=== PATIENT | female | born 1965 | race African-American/Black ===

== ENCOUNTER 2018-05-20 18:15 | Inpatient (IN) | payer MEDICARE, MEDICAID ==
[~2018-05-20] VITALS: Ht 170.2 cm; Wt 109.8 kg
[~2018-05-20 18:15] MED LIST: ADVAIR 100-501 EACH INH; ALBUTEROL SULF8.5 GM INH; ANUSOL-HC25 MG RECTAL; AZITHROMYCIN250 MG ORAL; BENAZEPRIL HCL10 MG PO; BENAZEPRIL HCL20 MG PO; CLARITIN5 MG PO; COLACE100 MG ORAL; CYCLOBENZAPRINE10 MG ORAL; HYDROCHLOROTHIA25 MG PO; NAPROXEN500 M2 ORAL; NASONEX17 GM NS; NORCO 10-325 T1 EACH PO; ONDANSETRON ODT4 MG ORAL; PREDNISONE20 M1 PO; PROMETHAZINE-C118 M1 ORAL; PROMETHAZINE-D118 ML ORAL; PROMOD946 ML PO; ROBITUSSIN DM T10 ML PO; TYLENOL EXTRA500 MG ORAL; VICODIN ES 7.51 EACH PO; ZITHROMAX250 MG ORAL
[2018-05-20] MEDS ORDERED: Sodium Chloride 500ML 500 ML IV ONE (18:39)
[2018-05-20 18:50] VITALS: BP 152/75
[2018-05-20 18:57] LABS: BASOPHILS % (AUTO) 1.5 % (0.0-2.0); EOSINOPHILS % (AUTO) 4.7 % (0.0-3.0); HEMATOCRIT 38.5 % (37.0-47.0); HEMOGLOBIN 12.6 G/DL (12.0-16.0); LYMPHOCYTES % (AUTO) 33.1 % (20.0-45.0); MEAN CORPUSCULAR VOLUME 86 FL (80-99); MONOCYTES % (AUTO) 8.8 % (1.0-10.0); NEUTROPHILS % (AUTO) 51.9 % (45.0-75.0); PLATELET COUNT 300 K/UL (150-450); RED BLOOD COUNT 4.46 M/UL (4.20-5.40); RED CELL DISTRIBUTION WIDTH 12.3 % (11.6-14.8); WHITE BLOOD COUNT 8.1 K/UL (4.8-10.8)
[2018-05-20 19:04] LABS: APPEARANCE,URINE CLEAR; BILIRUBIN, URINE NEGATIVE (NEGATIVE); COLOR,URINE PALE YELLOW; GLUCOSE, URINE (UA) NEGATIVE (NEGATIVE); KETONES,URINE NEGATIVE (NEGATIVE); LEUKOCYTE ESTERASE ,URINE 1+ (NEGATIVE); NITRITE,URINE NEGATIVE (NEGATIVE); PH,URINE 5 (4.5-8.0); PROTEIN,URINE NEGATIVE (NEGATIVE); UROBILINOGEN,URINE NORMAL MG/DL (0.0-1.0)
[2018-05-20 19:11] LABS: ANION GAP 10 mmol/L (5-15); BLOOD UREA NITROGEN 16 mg/dL (7-18); CALCIUM 9.3 MG/DL (8.5-10.1); CARBON DIOXIDE 30 MMOL/L (21-32); CHLORIDE 102 MMOL/L (98-107); CREATININE 1.1 MG/DL (0.55-1.30); POTASSIUM 3.6 MMOL/L (3.5-5.1); SODIUM 141 MMOL/L (136-145)
--- NOTE | 2018-05-20 19:24 | Emergency Room Report ---
History of Present Illness General Chief Complaint: Chest Pain Source: Patient, Medical Record (rPem Torres MD) Present Illness HPI 52-year-old female presents ED for evaluation. Complaining of chest pain. States that she felt fluttering in her chest which lasted for several minutes then subsided. Happened a few days ago. Happened earlier today. Feels pressure on her chest at this time. 4 out of 10, nonradiating. Denies shortness of breath. Denies on-call or drug use. Denies fevers or chills. No other aggravating relieving factors. Denies any other associated symptoms (Prem Torres MD) Allergies: Coded Allergies: No Known Allergies (Unverified , 01/14/16) Patient History Past Medical History: HTN, asthma, other - chronc back pain Past Surgical History: none Pertinent Family History: none Social History: Denies: smoking, alcohol use, drug use Now: No Immunizations: UTD Reviewed Nursing Documentation: PMH: Agreed; PSxH: Agreed (Prem Torres MD) Nursing Documentation-PMH Past Medical History: No History, Except For Hx Hypertension: Yes Hx Asthma: Yes Hx Neurological Problems: Yes - CHRONIC BACK PAIN (Prem Torres MD) Review of Systems All Other Systems: negative except mentioned in HPI (Prem Torres MD) Physical Exam Vital Signs Date Time Temp Pulse Resp B/P (MAP) Pulse Ox O2 Delivery O2 Flow Rate FiO2 25/18 18:25 98.4 67 16 168/71 96 Room Air Sp02 EP Interpretation: reviewed, normal General Appearance: no apparent distress, alert, GCS 15, non-toxic Head: normocephalic, atraumatic Eyes: bilateral eye normal inspection, bilateral eye PERRL ENT: hearing grossly normal, normal pharynx, no angioedema, normal voice Neck: full range of motion, supple/symm/no masses Respiratory: lungs clear, normal breath sounds, speaking full sentences, other - reproducible anterior chest wall pain Cardiovascular #1: regular rate, rhythm, no edema Cardiovascular #2: 2+ carotid (R), 2+ carotid (L), 2+ radial (R), 2+ radial (L) , 2+ dorsalis pedis (R), 2+ dorsalis pedis (L) Gastrointestinal: normal bowel sounds, non tender, soft, non-distended, no guarding, no rebound Rectal: deferred Genitourinary: normal inspection, no CVA tenderness Musculoskeletal: back normal, gait/station normal, normal range of motion, non- tender Neurologic: alert, oriented x3, responsive, motor strength/tone normal, sensory intact, speech normal Psychiatric: judgement/insight normal, memory normal, mood/affect normal, no suicidal/homicidal ideation Reflexes: 3+ bicep (R), 3+ bicep (L), 3+ tricep (R), 3+ tricep (L), 3+ knee (R) , 3+ knee (L) Skin: normal color, no rash, warm/dry, well hydrated Lymphatic: no adenopathy (Prem Torres MD) Medical Decision Making Diagnostic Impression: Primary Impression: Chest pain Qualified Codes: R07.9 - Chest pain, unspecified Additional Impressions: Palpitations Ectopic cardiac beats Chronic hip pain Qualified Codes: M25.559 - Pain in unspecified hip; G89.29 - Other chronic pain Hypertension Qualified Codes: I10 - Essential (primary) hypertension ER Course Please see above note. Patient with several episodes of palpitations with associated chest pressure. Anxiety after this began today. Prior smoker, family history (not young age), hypertension. Not on beta linnette. Discussed admission for observation. C/O hip pain. Treated with [place]. Admit telemetry Dr. Escobar. (Delvin Nelson MD) EKG Diagnostic Results Rate: normal Rhythm: NSR ST Segments: no acute changes (Prem Torres MD) Rate: normal Rhythm: NSR ST Segments: no acute changes - PACs and PVCs (Delvin Nelson MD) Rhythm Strip Diag. Results EP Interpretation: yes Rhythm: NSR, no PVC's, no ectopy (Prem Torres MD) EP Interpretation: yes Rhythm: NSR, other - PACs and PVCs, NSR (Delvin Nelson MD) Last Vital Signs Date Time Temp Pulse Resp B/P (MAP) Pulse Ox O2 Delivery O2 Flow Rate FiO2 05/20/18 18:50 98.4 76 18 152/75 100 Room Air (Prem Torres MD) Last Vital Signs Date Time Temp Pulse Resp B/P (MAP) Pulse Ox O2 Delivery O2 Flow Rate FiO2 05/21/18 12:00 97.5 69 20 160/84 (109) 97 05/21/18 10:25 Room Air Status: improved (Delvni Nelson MD) Disposition: ADMITTED INPATIENT Condition: Serious Referrals: NON PHYSICIAN (PCP) Prem Torres MD May 20, 2018 19:24 Delvin Nelson MD May 20, 2018 19:53
[2018-05-20 19:32] LABS: ALANINE AMINOTRANSFERASE 46 U/L (12-78); ALBUMIN 3.6 G/DL (3.4-5.0); ALBUMIN/GLOBULIN RATIO 0.9 (1.0-2.7); ALKALINE PHOSPHATASE 66 U/L (46-116); ASPARTATE AMINO TRANSFERASE 30 U/L (15-37); BILIRUBIN,TOTAL 0.5 MG/DL (0.2-1.0); CKMB 3.4 NG/ML (0.0-3.6); CREATINE KINASE 704 U/L (26-308)
[2018-05-20] MEDS ORDERED: Nitroglycerin 2% oint pkt TOPIC ONE (19:45)
[2018-05-20] MEDS ORDERED: LORazepam Inj 2mg/ml 1ml IV ONE (19:45)
[2018-05-20] MEDS ORDERED: Norco 5mg/325mg tab ORAL ONE (20:45)
[2018-05-20 21:27] VITALS: BP 163/81
[2018-05-20] MEDS ORDERED: Zolpidem 5mg tab ORAL PRN (21:45)
[2018-05-20] MEDS ORDERED: Nitroglycerin Subl 0.4mg tab SL PRN (21:45)
[2018-05-20 22:20] VITALS: BP 134/65
[2018-05-20 22:30] VITALS: BP 149/77
[2018-05-21] VITALS: BP 144/78
[2018-05-21 04:00] VITALS: BP 130/81
[2018-05-21 07:23] LABS: BASOPHILS % (AUTO) 1.2 % (0.0-2.0); HEMATOCRIT 35.9 % (37.0-47.0); HEMOGLOBIN 11.8 G/DL (12.0-16.0); LYMPHOCYTES % (AUTO) 36.5 % (20.0-45.0); MEAN CORPUSCULAR VOLUME 86 FL (80-99); MONOCYTES % (AUTO) 8.7 % (1.0-10.0); NEUTROPHILS % (AUTO) 47.7 % (45.0-75.0); PLATELET COUNT 268 K/UL (150-450); RED BLOOD COUNT 4.17 M/UL (4.20-5.40); WHITE BLOOD COUNT 6.5 K/UL (4.8-10.8)
[2018-05-21 07:47] LABS: ANION GAP 9 mmol/L (5-15); BLOOD UREA NITROGEN 17 mg/dL (7-18); CARBON DIOXIDE 27 MMOL/L (21-32); CHLORIDE 104 MMOL/L (98-107); CREATININE 0.9 MG/DL (0.55-1.30); POTASSIUM 3.8 MMOL/L (3.5-5.1); SODIUM 140 MMOL/L (136-145)
[2018-05-21 08:00] VITALS: BP 156/86
[2018-05-21] MEDS: hydroCHLOROthiazide 12.5mg TAB ORAL SCH (08:33)
[2018-05-21] MEDS: Aspirin Baby 81mg ORAL SCH (08:33)
[2018-05-21] MEDS: Enoxaparin 40mg Inj SUBQ SCH (08:39)
--- NOTE | 2018-05-21 11:27 | Diagnostic Imaging Report ---
Indication: Chest pain Technique: XRAY Chest 1v Comparison: 12/06/2014 Findings: Heart size within the upper limits for normal for AP technique. Mediastinal contours are sharp. There is no focal airspace consolidation. No pleural effusion or pneumothorax. No acute osseous abnormality. Impression: No radiographic evidence of acute cardiopulmonary disease.
--- NOTE | 2018-05-21 11:28 | Cardiac Electrophysiology PN ---
Subjective Subjective [id number] Objective Last 24 Hour Vital Signs Date Time Temp Pulse Resp B/P (MAP) Pulse Ox O2 Delivery O2 Flow Rate FiO2 05/21/18 10:25 Room Air 05/21/18 08:33 156/86 05/21/18 08:00 81 05/21/18 08:00 97.5 73 20 156/86 (109) 96 05/21/18 04:00 73 05/21/18 04:00 97.0 71 20 130/81 (97) 97 05/21/18 00:00 66 05/21/18 00:00 97.8 78 18 144/78 (100) 100 05/20/18 22:52 Room Air 05/20/18 22:30 98.0 81 20 149/77 (101) 100 05/20/18 22:20 98.8 71 18 134/65 97 Room Air 05/20/18 22:20 134/65 05/20/18 22:19 81 05/20/18 21:27 98.8 70 17 163/81 97 Room Air 05/20/18 21:26 98.4 05/20/18 20:54 165/67 05/20/18 18:50 98.4 76 18 152/75 100 Room Air 05/20/18 18:50 76 18 Room Air 05/20/18 18:25 98.4 67 16 168/71 96 Room Air Intake and Output 05/20/18 05/21/18 19:00 07:00 Intake Total 1254 ml Balance 1254 ml Intake Oral 120 ml IV Total 1134 ml # Voids 1 1 Laboratory Tests Test 05/20/18 18:37 05/20/18 18:43 05/21/18 05:51 Urine Color Pale yellow Urine Appearance Clear Urine pH 5 (4.5-8.0) Urine Specific [place] 1.010 (1.005-1.035) Urine Protein Negative (NEGATIVE) Urine Glucose (UA) Negative (NEGATIVE) Urine Ketones Negative (NEGATIVE) Urine Blood 3+ (NEGATIVE) H Urine Nitrite Negative (NEGATIVE) Urine Bilirubin Negative (NEGATIVE) Urine Urobilinogen Normal MG/DL (0.0-1.0) Urine Leukocyte Esterase 1+ (NEGATIVE) H Urine RBC 2-4 /HPF (0 - 2) H Urine WBC 0-2 /HPF (0 - 2) Urine Squamous Epithelial Cells Occasional /LPF Urine Bacteria Occasional /HPF (NONE) Urine Opiates Screen Negative (NEGATIVE) Urine Barbiturates Screen Negative (NEGATIVE) Phencyclidine (PCP) Screen Negative (NEGATIVE) Urine Amphetamines Screen Negative (NEGATIVE) Urine Benzodiazepines Screen Negative (NEGATIVE) Urine Cocaine Screen Negative (NEGATIVE) Urine Marijuana (THC) Screen Negative (NEGATIVE) White Blood Count 8.1 K/UL (4.8-10.8) 6.5 K/UL (4.8-10.8) Red Blood Count 4.46 M/UL (4.20-5.40) 4.17 M/UL (4.20-5.40) L Hemoglobin 12.6 G/DL (12.0-16.0) 11.8 G/DL (12.0-16.0) L Hematocrit 38.5 % (37.0-47.0) 35.9 % (37.0-47.0) L Mean Corpuscular Volume 86 FL (80-99) 86 FL (80-99) Mean Corpuscular Hemoglobin 28.1 PG (27.0-31.0) 28.3 PG (27.0-31.0) Mean Corpuscular Hemoglobin Concent 32.6 G/DL (32.0-36.0) 32.9 G/DL (32.0-36.0) Red Cell Distribution Width 12.3 % (11.6-14.8) 12.0 % (11.6-14.8) Platelet Count 300 K/UL (150-450) 268 K/UL (150-450) Mean Platelet Volume 6.0 FL (6.5-10.1) L 5.5 FL (6.5-10.1) L Neutrophils (%) (Auto) 51.9 % (45.0-75.0) 47.7 % (45.0-75.0) Lymphocytes (%) (Auto) 33.1 % (20.0-45.0) 36.5 % (20.0-45.0) Monocytes (%) (Auto) 8.8 % (1.0-10.0) 8.7 % (1.0-10.0) Eosinophils (%) (Auto) 4.7 % (0.0-3.0) H 6.0 % (0.0-3.0) H Basophils (%) (Auto) 1.5 % (0.0-2.0) 1.2 % (0.0-2.0) Sodium Level 141 MMOL/L (136-145) 140 MMOL/L (136-145) Potassium Level 3.6 MMOL/L (3.5-5.1) 3.8 MMOL/L (3.5-5.1) Chloride Level 102 MMOL/L (98-107) 104 MMOL/L (98-107) Carbon Dioxide Level 30 MMOL/L (21-32) 27 MMOL/L (21-32) Anion Gap 10 mmol/L (5-15) 9 mmol/L (5-15) Blood Urea Nitrogen 16 mg/dL (7-18) 17 mg/dL (7-18) Creatinine 1.1 MG/DL (0.55-1.30) 0.9 MG/DL (0.55-1.30) Estimat Glomerular Filtration Rate > 60 mL/min (>60) > 60 mL/min (>60) Glucose Level 87 MG/DL (74-106) 97 MG/DL (74-106) Calcium Level 9.3 MG/DL (8.5-10.1) 9.0 MG/DL (8.5-10.1) Total Bilirubin 0.5 MG/DL (0.2-1.0) Aspartate Amino Transf (AST/SGOT) 30 U/L (15-37) Alanine Aminotransferase (ALT/SGPT) 46 U/L (12-78) Alkaline Phosphatase 66 U/L (46-116) Total Creatine Kinase 704 U/L (26-308) H Creatine Kinase MB 3.4 NG/ML (0.0-3.6) Creatine Kinase MB Relative Index 0.4 Troponin I 0.022 ng/mL (0.000-0.056) 0.019 ng/mL (0.000-0.056) Pro-B-Type Natriuretic Peptide 48 pg/mL (0-125) Total Protein 7.6 G/DL (6.4-8.2) Albumin 3.6 G/DL (3.4-5.0) Globulin 4.0 g/dL Albumin/Globulin Ratio 0.9 (1.0-2.7) Charlie Garcia MD May 21, 2018 11:28
[2018-05-21] MEDS: Lexiscan 0.4mg/5ml syringe IV SCH (11:30)
[2018-05-21 12:00] VITALS: BP 160/84
[2018-05-21 16:00] VITALS: BP 159/79
--- NOTE | 2018-05-21 16:00 | History and Physical Report ---
DATE OF ADMISSION: 05/20/2018 REASON FOR ADMISSION: 1. Chest pain. 2. Palpitations. HISTORY OF PRESENT ILLNESS: The patient is a pleasant 52-year-old female who presented overnight for further evaluation and care of severe palpitations and chest pain 09/03 that developed on [place]. The patient said her first episode was approximately a week ago where she had palpitations, which lasted 20 minutes and resolved. However, on this occasion, she was at her son's home on [address] [place] and developed some palpitations and chest pain that did not resolve as such she presented to emergency room for further evaluation and care. ALLERGIES: No known drug allergies. PAST MEDICAL HISTORY: 1. Chronic obstructive pulmonary disease. 2. Hypertension. 3. Pain syndrome. 4. Chronic cough. SOCIAL HISTORY: No tobacco, alcohol, illicit drug use. PAST SURGICAL HISTORY: Noncontributory. REVIEW OF SYSTEMS: NEUROLOGIC: The patient denies headache, change in vision, syncope, presyncopal episodes. CARDIOVASCULAR: The patient was having some chest pain and palpitations. PULMONARY: No difficulty breathing, productive cough, sputum. GASTROINTESTINAL/GENITOURINARY: No change in urinary or bowel habits. No nausea, vomiting, diarrhea. ENDOCRINOLOGY: No night sweats, fevers, or chills MUSCULOSKELETAL: The patient feeling weak, tired and fatigue. LABORATORY AND DIAGNOSTIC DATA: Labs dated May 20, 2018 urine drug screen negative. Sodium 140, potassium 3.8, creatinine 0.9. Troponin 0.019. Hemoglobin 11.8, white cell count 6.5, and platelet count 268. PHYSICAL EXAMINATION: VITAL SIGNS: Blood pressure 130/81, respiratory rate 20, pulse 71, temperature 97.0, and 97% oxygen saturation on room air GENERAL: The patient is awake and alert, not in distress. HEENT: Extraocular muscles intact. No lymphadenopathy noted. Oropharyngeal mucosa is clear and dry. CARDIOVASCULAR: S1 and S2. No rubs or gallops. Regular rate. PULMONARY: Clear to auscultation bilaterally. No rales, rhonchi or wheezes. ABDOMINAL: Nondistended and nontender EXTREMITIES: No edema. ASSESSMENT AND PLAN: 1. Hypertension, stable. We will continue current regimen. 2. Acute coronary syndrome with palpitations. Troponin negative. At this time, cardiology was consulted for further and management with stress testing and echocardiogram. 3. DVT prophylaxis with Lovenox. Konstantin Lund MD DR: Lashanda JOB#: [id number] CC:
[2018-05-21] MEDS ORDERED: traMADol 50mg tab ORAL PRN (16:15)
[2018-05-21 20:00] VITALS: BP 165/80
--- NOTE | 2018-05-21 21:45 | Consultation ---
DATE OF CONSULTATION: 05/21/2018 CARDIAC ELECTROPHYSIOLOGY CONSULTATION CONSULTING PHYSICIAN: Charlie Chen M.D. REFERRING PHYSICIAN: Konstantin Lund M.D. REASON FOR CONSULT: Chest pain and palpitation. HISTORY OF PRESENT ILLNESS: The patient is a 52-year-old lady with history of hypertension, asthma, and chronic back pain came to the emergency room complaining of chest pain as well as palpitation that happened a few days ago. The patient's symptoms recurred on day of admission. The pain was 4/10, and was nonradiating. The patient denies any prior myocardial infarction or coronary artery disease. In the emergency room, blood pressure was with a pulse of 67, and temperature of 98.4. At the time of my evaluation, the patient denies any chest pain, palpitation, or shortness of breath. REVIEW OF SYSTEMS: Review of Systems was negative other than what was mentioned in the history of present illness. PAST MEDICAL HISTORY: As mentioned above. FAMILY HISTORY: Noncontributory. SOCIAL HISTORY: She lives at home. Does not smoke or drink alcohol. PHYSICAL EXAMINATION: VITAL SIGNS: Blood pressure of 136/86, pulse 81, respirations 20, and temperature 97.5. HEAD AND NECK: Showed no JVD. LUNGS: Clear. CARDIOVASCULAR: Regular S1 and S2 with no gallop or murmur. ABDOMEN: Soft EXTREMITIES: No pitting edema. LABORATORY AND DIAGNOSTIC DATA: Her laboratories show white count of 6.5, hemoglobin 11.9, hematocrit 35.9, and platelet count 268. Sodium 140, potassium 3.8, BUN of 17, creatinine 0.9. Troponin negative x2. ASSESSMENT AND PLAN: 1. Atypical chest pain. The patient was ruled out for myocardial infarction with serial cardiac enzymes. We will get an EKG and schedule the patient for a stress test. 2. Hypertension. We will continue Lotensin 40 mg daily and hydrochlorothiazide 12.5 mg daily. I will add p.r.n. clonidine to her medical regimen. 3. Palpitation. Watch the patient on telemetry to see if the patient has any SVT or atrial fibrillation. the patient's EKG also showed sinus rhythm with nonspecific T-wave abnormalities. Thank you very much, Dr. Lund, for allowing me to participate in the care of this patient. Please do not hesitate to contact me for any questions regarding my evaluation. Charlie Chen M.D. DR: Linda JOB#: [id number] CC:
[2018-05-22] VITALS: BP 157/79
[2018-05-22 04:00] VITALS: BP 150/78
[2018-05-22 08:00] VITALS: BP 147/89
--- NOTE | 2018-05-22 08:54 | Nephrology Progress Note ---
Assessment/Plan Assessment/Plan A/P 1) ACS/Chest pain with palpitations - neg Trop I, CT ruled out. DC today post stress test if negative 2) Hip Pain- Xray pending 3) HTN- DIANA-I/HCT 4) DVT prophylaxsis- lovenox DC today after stress test Subjective Date patient seen: May 22, 2018 Time patient seen: 08:49 Allergies: Coded Allergies: No Known Allergies (Unverified , 01/14/16) Subjective Patient chest pain free Objective Last 24 Hour Vital Signs Date Time Temp Pulse Resp B/P (MAP) Pulse Ox O2 Delivery O2 Flow Rate FiO2 05/22/18 08:00 97.5 61 20 147/89 (108) 98 05/22/18 04:00 98.0 78 20 150/78 (102) 99 05/22/18 04:00 55 05/22/18 00:00 98.0 74 20 157/79 (105) 99 05/22/18 00:00 80 05/21/18 21:00 Room Air 05/21/18 20:00 82 05/21/18 20:00 98.4 72 20 165/80 (108) 98 05/21/18 16:00 77 05/21/18 16:00 97.5 60 21 159/79 (105) 98 05/21/18 12:00 90 05/21/18 12:00 97.5 69 20 160/84 (109) 97 05/21/18 10:25 Room Air Intake and Output 05/21/18 05/22/18 19:00 07:00 Intake Total 975 ml 525 ml Balance 975 ml 525 ml Intake Oral 900 ml IV Total 75 ml 525 ml # Voids 6 Height (Feet): 5 Height (Inches): 7.00 Weight (Pounds): 242 General Appearance: no apparent distress, alert EENT: normal ENT inspection Neck: normal alignment, supple Cardiovascular: normal rate, regular rhythm Respiratory/Chest: lungs clear, normal breath sounds Abdomen: non tender, soft Edema: no edema noted Arm (L), no edema noted Arm (R), no edema noted Leg (L), no edema noted Leg (R), no edema noted Pedal (L), no edema noted Pedal (R), no edema noted Generalized Konstantin Lund MD May 22, 2018 08:54
--- NOTE | 2018-05-22 08:56 | Discharge Instructions ---
Discharge Instructions Discharge Instructions Services at Discharge: day care Diet: 2 GM sodium (low sodium) Resume Normal Activity?: Yes Follow Up Orders Follow up with primary care physician 1 week For Congestive Heart Failure Reminder Report to your physician any weight gain of 5 pounds or more in one week. Konstantin Lund MD May 22, 2018 08:56
[2018-05-22] MEDS: hydroCHLOROthiazide 12.5mg TAB ORAL SCH (09:00)
[2018-05-22] MEDS: Aspirin Baby 81mg ORAL SCH (09:17)
[2018-05-22] MEDS: Enoxaparin 40mg Inj SUBQ SCH (09:18)
--- NOTE | 2018-05-22 10:31 | Cardiac Electrophysiology PN ---
Assessment/Plan Assessment/Plan 1. Atypical chest pain. Ruled out for myocardial infarction with serial cardiac enzymes. Dobutamine echo pending today 2. Hypertension. We will continue Lotensin 40 mg daily and hydrochlorothiazide 12.5 mg daily. 3. Palpitation. No SVT or VT on telemetry. Only PACs and PVCs DW RN Subjective Subjective Awaiting nuclear stress test today Objective Last 24 Hour Vital Signs Date Time Temp Pulse Resp B/P (MAP) Pulse Ox O2 Delivery O2 Flow Rate FiO2 05/22/18 09:17 147/89 05/22/18 08:00 97.5 61 20 147/89 (108) 98 05/22/18 04:00 98.0 78 20 150/78 (102) 99 05/22/18 04:00 55 05/22/18 00:00 98.0 74 20 157/79 (105) 99 05/22/18 00:00 80 05/21/18 21:00 Room Air 05/21/18 20:00 82 05/21/18 20:00 98.4 72 20 165/80 (108) 98 05/21/18 16:00 77 05/21/18 16:00 97.5 60 21 159/79 (105) 98 05/21/18 12:00 90 05/21/18 12:00 97.5 69 20 160/84 (109) 97 Intake and Output 05/21/18 05/22/18 19:00 07:00 Intake Total 975 ml 525 ml Balance 975 ml 525 ml Intake Oral 900 ml IV Total 75 ml 525 ml # Voids 6 Objective HEAD AND NECK: No JVD. LUNGS: Clear. CARDIOVASCULAR: Regular S1 and S2 with no gallop or murmur. ABDOMEN: Soft EXTREMITIES: No pitting edema. Charlie Chen MD May 22, 2018 10:31
[2018-05-22] MEDS: Lexiscan 0.4mg/5ml syringe IV SCH (11:30)
--- NOTE | 2018-05-22 11:36 | Diagnostic Imaging Report ---
Indication: Pain Technique: XRAY Hip Routine 2v+ R Comparison: None Findings: Bone mineralization within normal limits. No definite/displaced acute fractures identified. Symphysis pubis is maintained. There are very mild degenerative changes of the hip. Multiple pelvic phleboliths noted. No radiopaque foreign body Impression: No definite/displaced acute fracture.
--- NOTE | 2018-05-22 11:54 | Cardiology Report ---
APPROVED REPORT EKG Measurement Heart [id number] Sinus rhythm with frequent premature ventricular complexes Possible Left atrial enlargement Nonspecific T wave abnormality Abnormal ECG
[2018-05-22 12:00] VITALS: BP 157/76
--- NOTE | 2018-05-22 13:32 | Cardiology Report ---
APPROVED REPORT EXAM: Two-dimensional and M-mode echocardiogram with Doppler and color Doppler. INDICATION Chest Pain M-Mode DIMENSIONS IVSd1.3 (0.7-1.1cm)Left Atrium (MM)3.7 (1.6-4.0cm) LVDd4.8 (3.5-5.6cm)Aortic Root2.9 (2.0-3.7cm) PWd1.4 (0.7-1.1cm)Aortic Cusp Exc.2.4 (1.5-2.0cm) LVDs2.6 (2.5-4.0cm) PWs2.3 cm Normal left ventricular chamber size, systolic function and wall motion. Left ventricular ejection fraction estimated to be 60 %. Mild left ventricular hypertrophy. No evidence of pericardial effusion. Left atrial size at upper limits of normal. Right atrial size at upper limits of normal. Right ventricular chamber sizes is within normal limits. Focal aortic valve sclerosis with adequate cusp excursion. Mildly thickened mitral valve leaflets with normal excursion. Mild mitral annulus and aortic root calcification. Normal pulmonic valve structure. Normal tricuspid valve structure. IVC measures at 2.0 cm with physiological collapse. A color flow and spectral Doppler study was performed and revealed: No aortic insufficiency. No mitral regurgitation. Mitral inflow velocities indicates possible pseudo normalization pattern implying significant left ventricular diastolic dysfunction (Grade II). No tricuspid regurgitation. Tricuspid systolic velocities suggests peak right ventricular systolic pressure of 6 mmHg. Mild pulmonic regurgitation present.
[2018-05-22] MEDS ORDERED: D5NS 1000ml IV ONE (14:59)
--- NOTE | 2018-05-23 08:13 | Discharge Summary ---
Discharge Summary Discharge Summary _ DATE OF ADMISSION: 05/20/2018 DATE OF DISCHARGE: 05/22/2018 DISCHARGED BY: Dr. Konstantin Lund CONSULTANTS: Dr. Charlie Chen BRIEF HOSPITAL COURSE: Patient is a 52-year-old female, who presented for evaluation of severe palpitations and chest pain, 4 out of 10 that developed on [place]. Patient said first episode was approximately a week ago where she had palpitations, which lasted for 20 minutes and resolved. However on this occasion, she was at her son's home on [place] [address] and developed palpitations and chest pain that did not resolve as such she presented to emergency room for further evaluation. She has medical conditions significant for COPD, hypertension, chronic cough and pain syndrome. On evaluation at ED, blood pressure was elevated to 160s systolic. Blood work did not show any leukocytosis, hemoglobin and hematocrit were stable. Electrolytes were normal. Troponin was negative. Urine toxicology was negative. EKG rhythm with no acute changes. Chest x-ray showed no radiographic evidence of cardiopulmonary disease. She was admitted for evaluation of hypertension, acute coronary syndrome and palpitations. She underwent cardiac evaluation. Cardiac enzymes were monitored. She was given Lotensin and hydrochlorothiazide for blood pressure. She was placed on clonidine as needed. She was monitored in telemetry. Given aspirin and Lovenox injections. She was placed on nitroglycerin as needed. Chief complaint of hip pain. X-ray of the right hip showed no definite/ displaced acute fracture. Was given tramadol for pain. Troponins were negative. She underwent dobutamine echo. EF estimated to be 60% . There were no SVT or VT on telemetry. She was cleared for discharge home. FINAL DIAGNOSES: Acute coronary syndrome/chest pain with palpitations, TN ruled out Hip pain Hypertension DISPOSITION: Patient was discharged home. DISCHARGE MEDICATIONS: Refer to Discharge Medication List. DISCHARGE INSTRUCTIONS: Follow-up in a week. I have been assigned to dictate discharge summary on this account, and I was not involved in the patient's management. Patricia Helms NP May 23, 2018 08:13
== END 2018-05-22 15:00 | disposition home or self-care (01) | DRG 311 ==
LOC: EMR 18:49 → 2E 20:46 → EDBEDREQ 21:00
DX: I24.9 Acute ischemic heart disease, unspecified (principal); I10 Essential (primary) hypertension; R00.2 Palpitations; M25.551 Pain in right hip; J45.909 Unspecified asthma, uncomplicated; G89.29 Other chronic pain; M54.9 Dorsalgia, unspecified
CPT/HCPCS: 36415; 71045; 80048; 80053; 80307; 81003; 82550; 82553; 83880; 84484; 85025; 93005; 93017; 93306; 93350; 96374; 99285; J2785